=== PATIENT | male | born 1995 | race Caucasian/White ===

== ENCOUNTER 2019-10-11 23:46 | Emergency (ER) | payer BC ==
[~2019-10-11] VITALS: Ht 190.5 cm; Wt 86.3 kg
[2019-10-12 00:33] LABS: BASO # 0.1 x10^3/uL (0.0-0.2); BASO % 1 % (0-3); EOS # 0.5 x10^3/uL (0.0-0.7); EOS % 7 % (0-3); HEMATOCRIT 44.7 % (39.0-53.0); HEMOGLOBIN 15.4 g/dL (13.0-17.5); LYMPH # 3.3 x10^3/uL (1.0-4.8); LYMPH % 41 % (24-48); MEAN CORPUSCULAR HEMOGLOBIN 30 pg (25-35); MEAN CORPUSCULAR HGB CONC 34 g/dL (31-37); MEAN CORPUSCULAR VOLUME 86 fL (79-100); MONO # 0.5 x10^3/uL (0.0-1.1); MONO % 6 % (0-9); NEUT # 3.6 x10^3uL (1.8-7.7); NEUT % 45 % (31-73); PLATELET COUNT 211 x10^3/uL (140-400); RED CELL DISTRIBUTION WIDTH 14.2 % (11.5-14.5)
--- NOTE | 2019-10-12 00:33 | PHYS DOC ---
General Adult EDM: Chief Complaint: SUICIDAL IDEATION HPI: HPI: 23-year-old male presents with suicidal ideation. The patient states that he has schizophrenia. He has been visual hallucinations of clouds, people, and an occasional demon. He knows that they are not real. He has been feeling more hopeless last couple of years. His hallucinations have been worse lately and he has been thinking more about harming himself. He does not have a specific plan. He just feels like life is hopeless. He has been feeling fine medically speaking. He has no complaints. Denies fever or chills. No known COVID-19 exposures. (BASILIO MACIEL DO) Review of Systems: Review of Systems: Constitutional: Denies fever or chills Eyes: Denies change in visual acuity HENT: Denies nasal congestion or sore throat Respiratory: Denies cough or shortness of breath Cardiovascular: Denies chest pain or edema GI: Denies abdominal pain, nausea, vomiting, bloody stools or diarrhea : Denies dysuria Musculoskeletal: Denies back pain or joint pain Integument: Denies rash Neurologic: Denies headache, focal weakness or sensory changes Endocrine: Denies polyuria or polydipsia Lymphatic: Denies swollen glands Psychiatric: Suicidal ideation, depression, visual hallucinations. (BASILIO MACIEL DO) Heart Score: Risk Factors: Risk Factors: DM, Current or recent (<one month) smoker, HTN, HLP, family history of CAD, obesity. Risk Scores: Score 0 - 3: 2.5% MACE over next 6 weeks - Discharge Home Score 4 - 6: 20.3% MACE over next 6 weeks - Admit for Clinical Observation Score 7 - 10: 72.7% MACE over next 6 weeks - Early Invasive Strategies (BASILIO MACIEL DO) Physical Exam: PE: Constitutional: Well developed, well nourished, no acute distress, non-toxic appearance. [] HENT: Normocephalic, atraumatic, bilateral external ears normal, oropharynx moist, no oral exudates, nose normal. [] Eyes: PERRLA, EOMI, conjunctiva normal, no discharge. [] Neck: Normal range of motion, no tenderness, supple, no stridor. [] Cardiovascular: Heart rate regular rhythm, no murmur [] Lungs & Thorax: Bilateral breath sounds clear to auscultation [] Abdomen: Bowel sounds normal, soft, no tenderness, no masses, no pulsatile masses. [] Skin: Warm, dry, no erythema, no rash. [] Back: No tenderness, no CVA tenderness. [] Extremities: No tenderness, no cyanosis, no clubbing, ROM intact, no edema. [] Neurologic: Alert and oriented X 3, normal motor function, normal sensory function, no focal deficits noted. [] Psychologic: Affect depressed, mood normal. [] (BASILIO MACIEL DO) EKG: EKG: [] (BASILIO MACIEL DO) Radiology/Procedures: Radiology/Procedures: [] (BASILIO MACIEL DO) Course & Med Decision Making: Course & Med Decision Making Pertinent Labs and Imaging studies reviewed. (See chart for details) The patient's labs are unremarkable. His urinalysis is negative for infection. His urine drug screen is positive for marijuana. His psychiatric screen has determined that the patient meets inpatient criteria. They are working on placement at this time. The patient refuses to go to [facility]. Am signing the patient out to Dr. Pearson at 0600. [] (BASILIO MACIEL DO) Course & Med Decision Making Assumed care of patient at the start of my shift today at 0600 hrs., patient is been no problems, remained hemodynamically stable without issues under my care Received word patient was accepted to [facility] for continued inpatient psychiatric care under the Dr. Holley Patient notified of this and amenable to transport. Patient transported via EMS in stable condition for further medical management (MIC PEARSON DO) Dragon Disclaimer: William Disclaimer: This electronic medical record was generated, in whole or in part, using a voice recognition dictation system. (BASILIO MACIEL DO) Departure Departure: Impression: Primary Impression: Depression Additional Impressions: Suicidal ideation Visual hallucinations Disposition: 65 XFER TO PSYCH HOSP/UNIT Condition: STABLE Referrals: PCP,NO (PCP) Justification of Admission: Justification of Admission: Justification of Admission Dx: N/A (BASILIO MACIEL DO) BASILIO MACIEL DO Oct 12, 2019 00:33 MIC PEARSON DO Oct 12, 2019 09:39
[2019-10-12 00:59] LABS: CALCIUM 8.9 mg/dL (8.5-10.1); CREATININE 1.1 mg/dL (0.7-1.3); GFR 84.5; POTASSIUM 3.6 mmol/L (3.5-5.1)
[2019-10-12 01:01] LABS: BACTERIA,URINE 0 /HPF (0-FEW); BILIRUBIN,URINE NEG (NEG); CLARITY,URINE CLEAR; COLOR,URINE YELLOW; GLUCOSE,URINE NEG (NEG); NITRITE,URINE NEG (NEG); RBC,URINE 0 /HPF (0-2); SQUAMOUS EPITHELIAL CELL,UR OCC /LPF; WBC,URINE RARE /HPF (0-4)
[2019-10-12 01:05] LABS: BARBITURATES NEG (NEG); BENZODIAZEPINES NEG (NEG); CANNABINOIDS POS (NEG); COCAINE NEG (NEG); METHADONE NEG (NEG); OPIATES NEG (NEG); PHENCYCLIDINE NEG (NEG)
[2019-10-12 01:05] LABS: ALBUMIN 3.6 g/dL (3.4-5.0); TOTAL BILIRUBIN 0.3 mg/dL (0.2-1.0); TOTAL PROTEIN 7.1 g/dL (6.4-8.2)
[2019-10-12 01:10] LABS: AMPHETAMINE/METHAMPHETAMINE NEG (NEG)
[2019-10-12 09:04] VITALS: BP 106/63
== END 2019-10-12 09:50 ==
LOC: ER 23:46
DX: F32.9 Major depressive disorder, single episode, unspecified (principal); R45.851 Suicidal ideations; R44.1 Visual hallucinations
CPT/HCPCS: 36415; 80053; 80307; 81001; 85025; 87426; 99285; U0003

== ENCOUNTER 2019-11-16 08:42 | Emergency (ER) | payer BC ==
[~2019-11-16] VITALS: Ht 190.5 cm; Wt 83.0 kg
--- NOTE | 2019-11-16 08:51 | PHYS DOC ---
Past History Past Medical History: Bipolar, Other Additional Past Medical Histor: schizophrenia; autism Past Surgical History: No Surgical History Alcohol Use: None General Adult HPI: HPI: 24 yo M PMH autism, presents the ED with complaints of worsening dental pain, "I've been meaning to get to the dentist but with covid." Patient reports his insurance is not accepted in the [facility] and has to follow-up at a dental clinic in [place]-has had difficulty scheduling appointments due to COVID. Some relief with Tylenol and Anbesol. Denies any blunt trauma to the head/neck. Review of Systems: Review of Systems: Constitutional: Denies fever or chills Eyes: Denies change in visual acuity HENT: Denies nasal congestion or sore throat Respiratory: Denies cough or shortness of breath Cardiovascular: Denies chest pain or edema GI: Denies abdominal pain, nausea, vomiting, bloody stools or diarrhea : Denies dysuria Musculoskeletal: Denies back pain or joint pain Integument: Denies rash Neurologic: Denies headache, focal weakness or sensory changes Endocrine: Denies polyuria or polydipsia Lymphatic: Denies swollen glands Psychiatric: Denies depression or anxiety Heart Score: Risk Factors: Risk Factors: DM, Current or recent (<one month) smoker, HTN, HLP, family history of CAD, obesity. Risk Scores: Score 0 - 3: 2.5% MACE over next 6 weeks - Discharge Home Score 4 - 6: 20.3% MACE over next 6 weeks - Admit for Clinical Observation Score 7 - 10: 72.7% MACE over next 6 weeks - Early Invasive Strategies Allergies: Allergies: Allergies Coded Allergies Type Severity Reaction Last Updated Verified No Known Drug Allergies 10/12/19 No Physical Exam: PE: Constitutional: Well developed, well nourished, no acute distress, non-toxic appearance. [] #13 or 14 with approximately 50% dental decay/tooth erosion and #19 with approximately 30% erosion HENT: Normocephalic, atraumatic, bilateral external ears normal, oropharynx moist, no oral exudates, nose normal, Eyes: EOMI, conjunctiva normal, no discharge. [] Neck: Normal range of motion, supple, no stridor. [] Cardiovascular: S1/S2 present Lungs & Thorax: Speaking in full sentences, bilateral equal chest rise Skin: Warm, dry, no erythema, no rash. [] Extremities: No tenderness, no cyanosis, no clubbing, ROM intact, no edema. [] Neurologic: Alert and oriented X 3, normal motor function, normal sensory function, no focal deficits noted. [] Psychologic: Affect normal, judgement normal, mood normal. [] EKG: EKG: [] Radiology/Procedures: Radiology/Procedures: [] Course & Med Decision Making: Course & Med Decision Making Pertinent Labs and Imaging studies reviewed. (See chart for details) Concern for chronic dental caries in the absense of any fever, head/neck swelling. Will treat with OTC analgesia and pen VK for possible periapical abscess. Strict ED return precautions were given for difficulties breathing, head or neck swelling, fever or nuchal rigidity. Encouraged urgent outpatient follow-up with PMD and dental clinic-referral list given. Life-threatening processes were considered but are low suspicion at this time, given history and physical exam. Pt was educated on all prescription medications and adverse effects. All patient's questions were answered and pt was stable at time of discharge. Life/limb-threatening differential includes but is not limited to, Boy's angina, infection (periodontal or peritonsillar abscess, retropharyngeal abscess, Vincents angina, pharyngeal/oyster preparer/buccal space infection), trauma or fracture, dental fracture/subluxation/avulsion, pulpitis, alveolar osteitis, ANUG or neoplasm I spoken with the patient and her caregivers. I explained the patient's condition, diagnoses and treatment plan based on the information available to me at this time. I have answered the patient and her caregiver's questions and addressed any concerns. The patient and her caregivers have a good understanding of patient's diagnosis, condition and treatment plan as can be expected at this point. Vital signs have been stable. Patient's condition is stable and appropriate for discharge from the emergency department. Patient will pursue further outpatient evaluation with primary care physician or other designated or consulting physician as outlined in the discharge instructions. The patient and/or caregivers are agreeable to this plan of care and follow-up instructions have been explained in detail. The patient and/or caregivers have received these instructions in written form and have expressed an understanding of the discharge instructions. The patient and/or caregivers are aware that any significant change of condition or worsening of symptoms should prompt immediate return to this or the closest emergency department or call to [facility] Disclaimer: William Disclaimer: This electronic medical record was generated, in whole or in part, using a voice recognition dictation system. Departure Departure: Impression: Primary Impression: Pain due to dental caries Disposition: HOME/RESIDENCE PRIOR TO ADM Condition: STABLE Referrals: PCP,NO (PCP) FOLLOW UP WITH FAMILY MEDICINE: Complete [facility], [facility] [address] [place] [address], Patient Instructions: Dental Caries Additional Instructions: EMERGENCY DEPARTMENT GENERAL DISCHARGE INSTRUCTIONS Thank you for coming to [facility] (ED) today and trusting us with you care. We trust that you had a positivie experience in our Emergency Department. If you wish to speak to the department management, you may call the director at [phone]. YOUR FOLLOW UP INSTRUCTIONS ARE FOLLOWS: 1. Do you have a private Doctor? If you do not have a private doctor, please ask for a resource list of physicians or clinics that may be able to assist you with follow up care. 2. The Emergency Physician has interpreted your x-rays. The X-Ray specialist will also review them. If there is a change in the findings, you will be notified in 48 hours when at all possible. 3. A lab test or culture has been done, your results will be reviewed and you will be notified if you need a change in treatment. ADDITIONAL INSTRUCTIONS AND INFORMATION: 1. Your care today has been supervised by a physician who is specially trained in emergency care. Many problems require more than one evaluation for a complete diagnosis and treatment. We recommend that you schedule your follow up appointment as recommended to ensure complete treatment of you illness or injury. If you are unable to obtain follow up care and continue to have a problem, or if your condition worsens, we recommend that you return to the ED. 2. We are not able to safely determine your condition over the phone nor are we able to give sound medical advice over the phone. For these safety reasons, if you call for medical advice we will ask you to come to the ED for further evaluation. 3. If you have any questions regarding these discharge instructions please call the ED at [phone]. SAFETY INFORMATION: In the interest of safety, wellness, and injury prevention; we encourage you to wear your sealbelt, if you smoke; quite smoking, and we encourage family to use a protective helmet for bicycling and other sporting events that present an increased risk for head injury. IF YOUR SYMPTOMS WORSEN OR NEW SYMPTOMS DEVELOP, OR YOU HAVE CONCERNS ABOUT YOUR CONDITION; OR IF YOUR CONDITION WORSENS WHILE YOU ARE WAITING FOR YOUR FOLLOW UP APPOINTMENT; EITHER CONTACT YOUR PRIMARY CARE DOCTOR, THE PHYSICIAN WHOSE NAME AND NUMBER YOU WERE GIVEN, OR RETURN TO THE ED IMMEDIATELY. Scripts Ibuprofen (IBUPROFEN) 600 Mg Tablet 600 MG PO Q6HRS for headache, #20 TAB Prov: SHANNEN STEWART DO 11/16/19 Penicillin V Potassium (PENICILLIN V POTASSIUM) 500 Mg Tablet 1 TAB PO BID for dental pain for 10 Days, #20 TAB 0 Refills Prov: SHANNEN STEWART DO 11/16/19 SHANNEN STEWART DO Nov 16, 2019 08:51
[2019-11-16] MEDS ORDERED: IBUP600T16 PO (09:03)
[2019-11-16] MEDS ORDERED: PENI500T PO (09:03)
[2019-11-16 09:12] VITALS: BP 122/80
== END 2019-11-16 09:10 | disposition home or self-care (01) ==
LOC: ER 08:42
DX: K02.9 Dental caries, unspecified (principal); F20.9 Schizophrenia, unspecified; F31.9 Bipolar disorder, unspecified
CPT/HCPCS: 99283

== ENCOUNTER 2020-05-21 19:46 | Emergency (ER) | payer SELFPAY ==
[~2020-05-21] VITALS: Ht 190.5 cm; Wt 92.0 kg
[2020-05-21 19:46] VITALS: BP 140/83
[~2020-05-21 19:46] MED LIST: IBUP600T16 PO; PENI500T PO
--- NOTE | 2020-05-21 19:57 | PHYS DOC ---
Past History Past Medical History: No Pertinent History Additional Past Medical Histor: schizophrenia; autism Past Surgical History: No Surgical History Alcohol Use: Rarely Adult General HPI HPI Patient is a 24-year-old male with and endorsed past medical history significant for schizophrenia, multiple personality disorder, anxiety and depression who presents to the emergency department today with a chief complaint of suicidal ideation, homicidal ideation. Patient states he has had thoughts of hurting himself, and using a knife to cut himself until he completes the suicide. States he is also angry at his mother and wants to hurt her or maybe even kill her because she brought his grandma up to visit and she from [place]. States he has had these thoughts in the past and has been hospitalized for them. States he is not taking any medications currently except for Suboxone or other street drugs he can find. Denies any recent travel, illnesses, fevers, Covid/flu symptoms, abdominal pain, nausea, vomiting. Review of Systems Review of Systems Review of systems otherwise unremarkable except noted in HPI Allergies Allergies Allergies Coded Allergies Type Severity Reaction Last Updated Verified No Known Drug Allergies 10/12/19 No Physical Exam Physical Exam Constitutional: Well developed, well nourished, no acute distress, non-toxic appearance. [] HENT: Normocephalic, atraumatic, oropharynx moist, no oral exudates Eyes: PERRLA, EOMI, conjunctiva normal, no discharge. [] Neck: Normal range of motion, Cardiovascular:Heart rate regular rhythm, no murmur [] Lungs & Thorax: Bilateral breath sounds clear to auscultation [] Abdomen: soft, no tenderness, no masses, no pulsatile masses. [] Skin: Warm, dry, no erythema, no rash. [] Back: No tenderness Extremities: No tenderness, ROM intact, Neurologic: Alert and oriented X 3, normal motor function, normal sensory function, no focal deficits noted. [] Psychologic: EKG EKG [] Radiology/Procedures Radiology/Procedures [] Heart Score C/O Chest Pain: No Risk Factors: Risk Factors: DM, Current or recent (<one month) smoker, HTN, HLP, family history of CAD, obesity. Risk Scores: Risk Factors: DM, Current or recent (<one month) smoker, HTN, HLP, family history of CAD, obesity. Course & Med Decision Making Course & Med Decision Making Patient is a 24-year-old male with a past medical history significant for schizophrenia who presents to the emergency department for SI Vital signs not concerning. Physical exam noted above. Laboratory analysis not concerning. Toxicology notable for cannabinoids. PAT team felt patient was appropriate for admission to a psychiatric facility for continued evaluation, treatment and medication management. Discussed all findings with patient who agreed with plan of transfer and admission. Dragon Disclaimer Dragon Disclaimer This electronic medical record was generated, in whole or in part, using a voice recognition dictation system. Departure Departure: Impression: Primary Impression: Suicidal ideation Additional Impression: Homicidal ideation Disposition: 65 DC/TRF TO PSYCH HOSP Condition: GOOD Referrals: PCP,NO (PCP) Problem Qualifiers YULI PORTILLO MD May 21, 2020 19:57
[2020-05-21 20:37] LABS: BARBITURATES NEG (NEG); BENZODIAZEPINES NEG (NEG); CANNABINOIDS POS (NEG); COCAINE NEG (NEG); METHADONE NEG (NEG); OPIATES NEG (NEG); PHENCYCLIDINE NEG (NEG)
[2020-05-21 20:38] LABS: AMPHETAMINE/METHAMPHETAMINE NEG (NEG)
[2020-05-21 20:50] LABS: BASO % 0 % (0-3); EOS # 0.2 x10^3/uL (0.0-0.7); EOS % 3 % (0-3); HEMATOCRIT 44.4 % (39.0-53.0); LYMPH # 2.3 x10^3/uL (1.0-4.8); LYMPH % 32 % (24-48); MEAN CORPUSCULAR HEMOGLOBIN 29 pg (25-35); MEAN CORPUSCULAR HGB CONC 34 g/dL (31-37); MEAN CORPUSCULAR VOLUME 86 fL (79-100); MONO # 0.3 x10^3/uL (0.0-1.1); MONO % 5 % (0-9); NEUT # 4.3 x10^3uL (1.8-7.7); NEUT % 60 % (31-73); PLATELET COUNT 224 x10^3/uL (140-400); RED BLOOD COUNT 5.18 x10^6/uL (4.30-5.70); RED CELL DISTRIBUTION WIDTH 13.6 % (11.5-14.5); WHITE BLOOD COUNT 7.3 x10^3/uL (4.0-11.0)
[2020-05-21 20:58] LABS: CREATININE 1.1 mg/dL (0.7-1.3); GFR 83.7; POTASSIUM 3.8 mmol/L (3.5-5.1)
[2020-05-21 21:03] LABS: ACETAMIN < 2 mcg/mL (10-30); ETHANOL < 10 mg/dL (0-10); SALIC 4.1 mg/dL (2.8-20.0)
== END 2020-05-22 03:35 ==
LOC: ER 19:46
DX: R45.851 Suicidal ideations (principal); F32.9 Major depressive disorder, single episode, unspecified; F41.9 Anxiety disorder, unspecified; Z20.822 Contact with and (suspected) exposure to COVID-19
CPT/HCPCS: 36415; 80048; 80307; 80329; 85025; 87426; 99285; C9803; G0480; U0003